=== PATIENT | female | born 1965 | race Caucasian/White ===

== ENCOUNTER 2017-05-10 20:40 | Emergency (ER) | payer OTHER ==
[~2017-05-10 20:40] MED LIST: CELE40TA PO; CITA20 PO; NORC10TA2 PO; SYNT25TA PO
[2017-05-10 22:00] VITALS: BP 123/85; PULSE 78; RESP 18; TEMP 98.5; O2SAT 99
[2017-05-10 22:25] LABS: BASOPHIL # 0.1 TH/MM3 (0-0.2); BASOPHIL % 0.8 % (0.0-2.0); EOSINOPHIL % 0.3 % (0.0-4.0); HEMATOCRIT 43.7 % (35.0-46.0); HEMO FLAGS DIFF FINAL; LYMPHOCYTE # 2.8 TH/MM3 (1.0-4.8); MEAN CELL VOLUME 78.2 FL (80.0-100.0); MEAN CORPUSCULAR HEMOGLOBIN 25.5 PG (27.0-34.0); MEAN CORPUSCULAR HGB CONC 32.6 % (32.0-36.0); MONO % 3.8 % (0.0-8.0); NEUT % 65.1 % (16.0-70.0); PLATELET COUNT 312 TH/MM3 (150-450); RED BLOOD COUNT 5.58 MIL/MM3 (4.00-5.30); RED CELL DISTRIBUTION WIDTH 16.3 % (11.6-17.2); WHITE BLOOD COUNT 9.3 TH/MM3 (4.0-11.0)
[2017-05-10 22:48] LABS: ANION GAP 10 MEQ/L (5-15); AST (GOT) 17 U/L (15-37); BICARBONATE 22.3 MEQ/L (21.0-32.0); BLOOD UREA NITROGEN 10 MG/DL (7-18); CHLORIDE 104 MEQ/L (98-107); GLOMERULAR FILTRATION RATE 59 ML/MIN (>89); POTASSIUM 3.8 MEQ/L (3.5-5.1); SODIUM (NA) 136 MEQ/L (136-145)
[2017-05-10 22:49] LABS: ALT (GPT) 18 U/L (10-53)
[2017-05-10 22:52] LABS: ALKALINE PHOSPHATASE 113 U/L (45-117); TOTAL BILIRUBIN ADULT 0.2 MG/DL (0.2-1.0)
[2017-05-10 23:03] LABS: ALCOHOL 50 MG/DL (0-5)
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
[2017-05-11 07:20] VITALS: BP 120/83; PULSE 78; RESP 16; TEMP 97.8; O2SAT 99
[2017-05-11] MEDS ORDERED: HYDR-3366 PO (08:41)
[2017-05-11] MEDS ORDERED: METO50TA11 PO (08:41)
[2017-05-11] MEDS ORDERED: CELE40TA PO (08:41)
[2017-05-11] MEDS ORDERED: ALPR0.5T3 PO (08:41)
[2017-05-11] MEDS ORDERED: AMLO10 PO (08:41)
[2017-05-11] MEDS ORDERED: LEVO.15 PO (08:41)
[2017-05-11] MEDS ORDERED: AMIT25TA9 PO (08:41)
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
--- NOTE | 2017-05-11 14:39 | PD ---
Data Data Last Documented VS Vital Signs Date Time Temp Pulse Resp B/P (MAP) Pulse Ox O2 Delivery O2 Flow Rate FiO2 05/11/17 07:20 78 16 99 Room Air 05/11/17 07:20 97.8 120/83 (95) Orders Orders Complete Blood Count With Diff (05/10/17 20:59) Comprehensive Metabolic Panel (05/10/17 20:59) Psych Screen (05/10/17 20:59) Drug Screen, Random Urine (05/10/17 20:59) Alcohol (Ethanol) (05/10/17 20:59) Diet Regular Basic (05/11/17 Breakfast) Labs Laboratory Tests Test 05/10/17 21:07 05/10/17 22:00 Urine Opiates Screen NEG Urine Barbiturates Screen NEG Urine Amphetamines Screen NEG Urine Benzodiazepines Screen NEG Urine Cocaine Screen NEG Urine Cannabinoids Screen NEG White Blood Count 9.3 TH/MM3 Red Blood Count 5.58 MIL/MM3 Hemoglobin 14.2 GM/DL Hematocrit 43.7 % Mean Corpuscular Volume 78.2 FL Mean Corpuscular Hemoglobin 25.5 PG Mean Corpuscular Hemoglobin Concent 32.6 % Red Cell Distribution Width 16.3 % Platelet Count 312 TH/MM3 Mean Platelet Volume 7.7 FL Neutrophils (%) (Auto) 65.1 % Lymphocytes (%) (Auto) 30.0 % Monocytes (%) (Auto) 3.8 % Eosinophils (%) (Auto) 0.3 % Basophils (%) (Auto) 0.8 % Neutrophils # (Auto) 6.0 TH/MM3 Lymphocytes # (Auto) 2.8 TH/MM3 Monocytes # (Auto) 0.3 TH/MM3 Eosinophils # (Auto) 0.0 TH/MM3 Basophils # (Auto) 0.1 TH/MM3 CBC Comment DIFF FINAL Differential Comment Blood Urea Nitrogen 10 MG/DL Creatinine 0.99 MG/DL Random Glucose 74 MG/DL Total Protein 8.5 GM/DL Albumin 4.3 GM/DL Calcium Level 9.2 MG/DL Alkaline Phosphatase 113 U/L Aspartate Amino Transf (AST/SGOT) 17 U/L Alanine Aminotransferase (ALT/SGPT) 18 U/L Total Bilirubin 0.2 MG/DL Sodium Level 136 MEQ/L Potassium Level 3.8 MEQ/L Chloride Level 104 MEQ/L Carbon Dioxide Level 22.3 MEQ/L Anion Gap 10 MEQ/L Estimat Glomerular Filtration Rate 59 ML/MIN Ethyl Alcohol Level 50 MG/DL MDM Supervised Visit with [facility]IR[facility]: No Narrative Course I spoke with the psychiatric team about this patient and they asked me to disposition her. I reviewed her medical workup. She has normal lab studies. Her vital signs are normal. She's been here about 16 hours. She is stable for outpatient follow-up. She has an appointment on Saturday for follow-up. They don't believe her to be a danger to herself or others. Diagnosis Primary Impression: Adjustment disorder with depressed mood Patient Instructions: General Instructions, Mood Disorders (ED) Departure Forms: Tests/Procedures Additional Instruction: The patient was advised to follow up with their physician and return if they worsen. Med/Other Pt SpecificInfo: Other Disposition: 01 DISCHARGE HOME Condition: Stable Richar Zamora MD May 11, 2017 14:39
[2017-05-11 14:40] VITALS: BP 130/77; TEMP 97.8
== END 2017-05-11 14:44 | disposition home or self-care (01) ==
LOC: NEDAMB 20:40 → NEPD 05-11 14:44
DX: F43.23 Adjustment disorder with mixed anxiety and depressed mood (principal); I10 Essential (primary) hypertension; E78.00 Pure hypercholesterolemia, unspecified; M32.9 Systemic lupus erythematosus, unspecified
CPT/HCPCS: 80053; 80307; 85025; 99284

== ENCOUNTER 2017-10-30 22:59 | Emergency (ER) | payer SELFPAY ==
[~2017-10-30] VITALS: Ht 165.1 cm; Wt 79.0 kg
[~2017-10-30 22:59] MED LIST changes: +ALPR0.5T3 PO; +AMIT25TA9 PO; +AMLO10 PO; -CITA20 PO; +HYDR-3366 PO; +LEVO.15 PO; +METO1TAB9 PO; -NORC10TA2 PO; -SYNT25TA PO
[2017-10-30 23:55] VITALS: BP 146/81; PULSE 71; RESP 18; TEMP 97.8; O2SAT 100
--- NOTE | 2017-10-31 02:11 | PD ---
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 She says now her leg right side is swelling tender painful. She has a history of years ago having fractured ankle with metal plates and screws in her ankle. She is worried that there is an infection versus movement of the hardware versus a recurrence of erythema nodosum however on initial inspection I see no signs of redness swelling minimal tenderness when I examine her normal pedal pulses patient with an x-ray [facility] Past Medical History Asthma: No Autoimmune Disease: Yes (LUPUS) Anxiety: Yes Depression: Yes (bipolar/ manic depression ) Heart Rhythm Problems: No Cardiovascular Problems: Yes High Cholesterol: Yes Chest Pain: No Congestive Heart Failure: No COPD: Yes Developmental Delay: No Diabetes: No Diminished Hearing: No Endocrine: Yes Fibromyalgia: Yes Gastrointestinal Disorders: No Genitourinary: No Hypertension: Yes Musculoskeletal: Yes (INFLAMMATION IN LEGS AT TIMES) Neurologic: No (fibromyalgia ) Psychiatric: Yes Respiratory: Yes Immunizations Current: Yes Pneumonia: Yes (intubated and trached in past ) Sleep Apnea: No Thyroid Disease: Yes Tetanus Vaccination: Unknown Influenza Vaccination: Yes ?: Unknown : 5 Para: 1 : 4 Past Surgical History Tonsillectomy: Yes Other Surgery: Yes ( 2006--RADIATION(PILL) THYROID) Social History Alcohol Use: Yes Tobacco Use: Yes (08/13 PPD ) Substance Use: No Allergies-Medications (Allergen,Severity, Reaction): Coded Allergies: tramadol (Verified Adverse Reaction, Intermediate, HEADACHE, 10/30/17) *MDRO Multi-Drug Resistant Organism (Verified Adverse Reaction, Unknown, ) MRSA (sputum) - 11/2006 Reported Meds & Prescriptions Reported Meds & Active Scripts Active Ibuprofen 600 Mg Tab 600 Mg PO Q6H PRN [place] (Hydrocodone-Acetaminophen) 5 Mg-325 Mg Tab 1 Tab PO Q6H PRN Reported [place] (Hydrocodone-Acetaminophen) 10-325 Mg Tab 1 Tab PO Q6H PRN Amitriptyline (Amitriptyline HCl) 25 Mg Tab 25 Mg PO HS Norvasc (Amlodipine Besylate) 10 Mg Tab 10 Mg PO DAILY Alprazolam 0.5 Mg Tab 0.5 Mg PO BID PRN Celexa (Citalopram Hydrobromide) 40 Mg Tab 60 Mg PO DAILY Synthroid (Levothyroxine Sodium) 150 Mcg Tab 150 Mcg PO DAILY Metoprolol Succinate ER 24 HR (Metoprolol Succinate) 50 Mg Tab 50 Mg PO DAILY Physical Exam Narrative GENERAL: tearful rubbing left ankle.. SKIN: Warm and dry. HEAD: Atraumatic. Normocephalic. EYES: Pupils equal and round. No scleral icterus. No injection or drainage. ENT: No nasal bleeding or discharge. Mucous membranes pink and moist. NECK: Trachea midline. No JVD. CARDIOVASCULAR: Regular rate and rhythm. RESPIRATORY: No accessory muscle use. Clear to auscultation. Breath sounds equal bilaterally. GASTROINTESTINAL: Abdomen soft, non-tender, nondistended. Hepatic and splenic margins not palpable. MUSCULOSKELETAL: Extremities Left ankle tender to touch no reddness no warmth and no hardward palpated no obvious deformity no edema. No obvious deformities. NEUROLOGICAL: Awake and alert. No obvious cranial nerve deficits. Motor grossly within normal limits. Five out of 5 muscle strength in the arms and legs. Normal speech. PSYCHIATRIC: Appropriate mood and affect; insight and judgment normal. Data Data Last Documented VS Orders Orders Ketorolac Inj (Toradol Inj) (10/31/17 02:15) Acetamin-Hydrocod 325-5 Mg (Combs 5-325 (10/31/17 02:15) Ankle, Complete ([id number]) (10/31/17 ) Ed Discharge Order (10/31/17 03:41) [facility] Medical Decision Making Medical Screen Exam Complete: Yes Emergency Medical Condition: Yes Differential Diagnosis strain . vs sprain fracture vs hardware infection vs osteomyeolitis vs pain NOS Narrative Course I see no signs of redness swelling minimal tenderness when I examine her normal pedal pulses patient with an x-ray Toradol Xray negative for pathology hardware seems in place and no signs of fracture no edema no effusion. Pt given 1 tab of norco and toradol IM and discharged . She reports allergy to tramadol . Rx for 6 pills of Combs and Ibuprofen Diagnosis Primary Impression: Ankle pain Qualified Codes: M25.579 - Pain in unspecified ankle and joints of unspecified foot Patient Instructions: Ankle Strain (ED), General Instructions Scripts Ibuprofen (Ibuprofen) 600 Mg Tab 600 MG PO Q6H Y for Pain/Inflammation, #40 TAB 0 Refills Prov: García Andujar MD 10/31/17 Hydrocodone-Acetaminophen (Combs) 5 Mg-325 Mg Tab 1 TAB PO Q6H Y for PAIN, #6 TAB 0 Refills Prov: García Andujar MD 10/31/17 Disposition: 01 DISCHARGE HOME Condition: Good García Andujar MD Oct 31, 2017 02:11
[2017-10-31] MEDS ORDERED: ACETAMINOPHEN/HYDROcodone 325 MG/5 MG TAB PO ONE (02:15)
[2017-10-31] MEDS ORDERED: KETOROLAC TROMETHAMINE 60 MG/2 ML (IM) VIAL IM ONE (02:15)
[2017-10-31] MEDS ORDERED: NORC5TAB PO (02:58)
[2017-10-31] MEDS ORDERED: IBUP-232 PO (02:58)
--- NOTE | 2017-10-31 03:11 | RADRPT ---
EXAM DATE/TIME: 10/31/2017 02:18 [place] COMPARISON: No previous studies available for comparison. INDICATIONS : Nontraumatic left ankle swelling and pain. MEDICAL HISTORY : None. SURGICAL HISTORY : ORIF left ankle ENCOUNTER: Initial ACUITY: 1 day PAIN SCORE: 8/10 LOCATION: Left ankle FINDINGS: Three-view examination of the ankle. There is a lateral fibular plate in place with intact screws. Sclerotic and hypertrophic arthropathy of the tibiotalar articulation. There is mild widening of the medial ankle mortise. There is mild medial and lateral soft tissue swelling about the ankle. 5 mm corticated ossific densities are present inferior to the medial malleolus and inferior to the tip of the lateral malleolus. Moderate size plantar calcaneal spur. No evidence of acute fracture. CONCLUSION: Mild diffuse soft tissue swelling about the ankle. Intact lateral fibular internal fixation hardware . Widening of the medial ankle mortise suggesting possible ligamentous injury. Sandoval Lebron MD on October 31, 2017 at 3:03 Board Certified Radiologist. This report was verified electronically.
== END 2017-10-31 03:59 | disposition home or self-care (01) ==
LOC: NEPE 22:59
DX: M25.572 Pain in left ankle and joints of left foot (principal); I10 Essential (primary) hypertension; E78.00 Pure hypercholesterolemia, unspecified; J44.9 Chronic obstructive pulmonary disease, unspecified; F31.9 Bipolar disorder, unspecified; F17.210 Nicotine dependence, cigarettes, uncomplicated; Z88.8 Allergy status to other drugs, medicaments and biological substances; Z79.899 Other long term (current) drug therapy
CPT/HCPCS: 73610; 96372; 99283; J1885